=== PATIENT | male | born 1940 | race Caucasian/White ===

== ENCOUNTER 2024-10-12 14:07 | Emergency (ER) | payer SELFPAY ==
[~2024-10-12] VITALS: Ht 170.2 cm; Wt 70.0 kg
[2024-10-12 14:09] VITALS: O2SAT 96
[2024-10-12] MEDS: SODIUM CHLORIDE 0.9% 1,000 ML IV ONE (15:39)
[2024-10-12 16:46] LABS: BASOPHILS % 0.2 % (0.0-2.0); EOSINOPHILS % 1.9 % (0.0-5.0); HEMATOCRIT. 43.7 % (42.0-52.0); HEMOGLOBIN. 14.7 g/dL (14.0-18.0); LYMPHOCYTES % 7.7 % (20.0-50.0); MEAN CORPUSCULAR HEMOGLOBIN 31.6 pg (28.0-32.0); MEAN CORPUSCULAR HGB CONC 33.6 g/dL (31.0-37.0); MEAN CORPUSCULAR VOLUME 94.1 fL (80.0-94.0); MEAN PLATELET VOLUME 9.2 fl (7.4-10.4); MONOCYTES % 5.8 % (2.0-8.0); NEUTROPHILS % 84.4 % (40.0-76.0); PLATELET 172 x1000/uL (130-400); RED BLOOD CELL COUNT 4.65 mill/uL (4.7-6.1); RED CELL DISTRIBUTION WIDTH 14.4 % (11.6-14.6); WHITE BLOOD COUNT 6.6 x1000/uL (4.5-11.0)
[2024-10-12 16:50] LABS: CHLORIDE 104 mEq/L (98-107); SODIUM 139 mEq/L (136-145)
[2024-10-12 16:51] LABS: CARBON DIOXIDE 28 mEq/L (21-32)
[2024-10-12 16:52] LABS: CALCIUM 9.7 mg/dL (8.7-10.4)
[2024-10-12 16:56] LABS: CREATININE 0.8 mg/dL (0.6-1.3); GLUCOSE 102 mg/dL (70-105)
[2024-10-12 16:57] LABS: UREA NITROGEN BLOOD 17 mg/dL (9-23)
[2024-10-12 16:58] LABS: ALANINE AMINOTRANSFERASE 27 IU/L (10-49); ASPARTATE AMINOTRANSFERASE 33 IU/L (<34)
[2024-10-12 16:59] LABS: ALBUMIN 4.7 g/dL (3.2-4.8); BILIRUBIN TOTAL 0.8 mg/dL (0.1-1.0); PROTEIN TOTAL 7.7 g/dL (6.0-8.3)
[2024-10-12 17:13] LABS: TROPONIN I HIGH SENSITIVITY < 4 ng/L (3.0-53)
[2024-10-12 18:15] VITALS: BP 128/63; PULSE 65; RESP 13; TEMP 36.78072; O2SAT 98
[2024-10-12 18:45] LABS: TROPONIN I HIGH SENSITIVITY < 4 ng/L (3.0-53)
== END 2024-10-12 18:44 | disposition home or self-care (01) ==
LOC: ER 14:07
DX: R55 Syncope and collapse (principal); I10 Essential (primary) hypertension
CPT/HCPCS: 80053; 85025; 84484; 36415; 93005; 96360; 99284; Z7610 ×2